=== PATIENT | female | born 2000 | race African-American/Black ===

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

== ENCOUNTER 2019-09-25 12:00 | Emergency (ER) | payer BC ==
[2019-09-25] MEDS ORDERED: Naproxen TAB* 250 MG PO ONE (14:15)
--- NOTE | 2019-09-25 14:16 | ED ---
Abdominal Pain/Female - HPI Summary HPI Summary: Patient is a 19-year-old female who presents emergency department for 6 days. Patient notes a history of endometriosis. Patient states she typically has pain during her period and a few days after before her menstrual cycle. Patient is concerned because her pain typically does not last this long after her menstrual cycle. Denies associated symptoms of dysuria, discharge from irregular bleeding, respiratory symptoms, vomiting, diarrhea, constipation. Denies concern for STIs. Pain is constant and worse with bowel movement inactivity. Symptoms are moderate in severity. No current modifying factors. - History of Current Complaint Chief Complaint: EDAbdPain Stated Complaint: ABDOMINAL PAIN PER PT Time Seen by Provider: 09/25/19 13:55 Hx Obtained From: Patient Pain Intensity: 7 Allergies/Adverse Reactions: Allergies Allergy/AdvReac Type Severity Reaction Status Date / Time No Known Allergies Allergy Verified 07/27/18 19:23 PMH/Surg Hx/FS Hx/Imm Hx Previously Healthy: Yes Infectious Disease History: No Infectious Disease History: Denies: Traveled Outside the [place] in Last 30 Days - Family History Known Family History: Positive: Non-Contributory - Social History Occupation: Student Lives: With Family Alcohol Use: None Substance Use Type: Reports: None Smoking Status (MU): Never Smoked Tobacco Review of Systems Constitutional: Negative ENT: Negative Cardiovascular: Negative Respiratory: Negative Positive: Abdominal Pain. Negative: Vomiting, Diarrhea, Nausea Negative: dysuria, discharge, flank pain Skin: Negative Neurological: Negative All Other Systems Reviewed And Are Negative: Yes Physical Exam Triage Information Reviewed: Yes Vital Signs On Initial Exam: Initial Vitals Temp Pulse Resp BP Pulse Ox 98.5 F 67 16 134/84 100 09/25/19 12:14 09/25/19 12:14 09/25/19 12:14 09/25/19 12:14 09/25/19 12:14 Vital Signs Reviewed: Yes Appearance: Positive: Well-Appearing - Pt. sitting up in bed in NAD. Skin: Positive: Warm, Dry Head/Face: Positive: Normal Head/Face Inspection Eyes: Positive: Normal, EOMI Neck: Positive: Supple Respiratory/Lung Sounds: Positive: Clear to Auscultation, Breath Sounds Present Cardiovascular: Positive: Normal, RRR Abdomen Description: Positive: Other: - Abd. is soft with mild tenderness to right lower abd. and suprapubic region. No rebound or guarding. No CVA tenderness. Neurological: Positive: Normal, CN Intact II-III Psychiatric: Positive: Affect/Mood Appropriate Procedures - Sedation Patient Received Moderate/Deep Sedation with Procedure: No Diagnostics - Vital Signs Vital Signs Temp Pulse Resp BP Pulse Ox 09/25/19 12:14 98.5 F 67 16 134/84 100 - Laboratory Result Diagrams: 09/25/19 15:13 09/25/19 15:13 Lab Statement: Any lab studies that have been ordered have been reviewed, and results considered in the medical decision making process. Abdominal Pain Fem Course/Dx - Course Course Of Treatment: Pt. with lower abd. pain x 6 days. Afebrile and well appearing. Naproxen given for pain with minimal improvement. Labs are unremarkable other than mild anemia. Negative urine. Given length of pain and normal CBC and CRP suspicion for infection or appendicitis is very low. Pain possibly from endo. Pt. seens Dr. Paz for [facility] and advised to call office tomorrow for close f.u. To return for increased pain, fever, vomiting or if conerned. Pt. understands and agrees with plan. - Diagnoses Differential Diagnosis: Positive: Appendicitis, Ectopic , Pelvic Inflammatory Disease, Urinary Tract Infection Provider Diagnoses: Abdominal pain Discharge ED - Sign-Out/Discharge Documenting (check all that apply): Patient Departure - Discharge Plan Condition: Good Disposition: HOME Prescriptions: Naproxen [Naproxen 500 mg tab] 500 mg PO BID #20 tablet Patient Education Materials: Acute Abdominal Pain (ED) [facility] [[facility] - Hina Paz MD [Medical Doctor] - Additional Instructions: Call your [facility] tomorrow for a close follow up appointment Naproxen as directed Return to ER for increased pain, fever, vomiting or if concerned - Billing Disposition and Condition Condition: GOOD Disposition: Home - Attestation Statements Provider Attestation: I was available for consult. This patient was seen by the JORDAN. The patient was not presented to, seen by, or examined by me. Julio César Sarmiento MD
[2019-09-25 15:18] LABS: Urine Appearance Clear; Urine Bilirubin Negative (Negative); Urine Blood Negative (Negative); Urine Color Yellow; Urine Glucose Negative (Negative); Urine Ketones Negative (Negative); Urine Nitrite Negative (Negative); Urine Protein Negative (Negative); Urine Specific Gravity 1.015 (1.010-1.030); Urine Urobilinogen Negative (Negative)
[2019-09-25 15:37] LABS: ABS Eosinophils 0.1 10^3/ul (0-0.6); ABS Lymphocytes 1.8 10^3/ul (1.0-4.8); ABS Monocytes 0.6 10^3/ul (0-0.8); ABS Neutrophils 3.6 10^3/ul (1.5-7.7); Eosinophil % 0.9 %; Hematocrit 34 % (35-47); Hemoglobin 10.9 g/dL (12.0-16.0); Lymphocyte % 30.1 %; Mean Corpuscular HGB Conc 32 g/dL (31-36); Mean Corpuscular Hemoglobin 27 pg (27-31); Mean Corpuscular Volume 85 fL (80-97); Mean Platelet Volume 8.6 fL (7.4-10.4); Nucleated Red Blood Cells % 0.2; Platelet Count 287 10^3/uL (150-450); Red Blood Count 3.99 10^6 /uL (3.70-4.87); Red Cell Distribution Width 14 % (10-15); White Blood Count 6.1 10^3/uL (3.5-10.8)
[2019-09-25 15:49] LABS: ALT 9 U/L (7-52); Albumin 3.8 g/dL (3.2-5.2); Albumin/Globulin Ratio 1.2 (1-3); Alkaline Phosphatase 34 U/L (34-104); BUN/Creatinine Ratio 11.4 (8-20); Blood Urea Nitrogen 8 mg/dL (6-24); CO2 Carbon Dioxide 25 mmol/L (22-32); Calcium 9.1 mg/dL (8.6-10.3); Chloride 107 mmol/L (101-111); EGFR African American 129.1 (>60); EGFR Non-African American 106.7 (>60); Globulin 3.2 g/dL (2-4); Glucose 84 mg/dL (70-100); Sodium 137 mmol/L (135-145)
[2019-09-25 15:51] LABS: Anion Gap 5 mmol/L (2-11); Potassium 4.1 mmol/L (3.5-5.0)
[2019-09-25 15:52] LABS: AST 14 U/L (13-39); HCG Pregnancy < 0.60 mIU/mL
[2019-09-25 16:40] VITALS: BP 129/74
== END 2019-09-25 16:38 | disposition home or self-care (01) ==
LOC: ED 12:00
DX: R10.31 Right lower quadrant pain (principal)
CPT/HCPCS: 36415; 80053; 81003; 83690; 84702; 85025; 99282; A9270-GY